=== PATIENT | male | born 1955 | race Caucasian/White ===

== ENCOUNTER 2017-04-18 08:39 | Day surgery (SDC) | payer MEDICARE ==
[~2017-04-18] VITALS: Ht 165.1 cm; Wt 81.6 kg
[2017-04-18] MEDS ORDERED: PROPOFOL 40 ML ONE (09:01)
[2017-04-18] MEDS ORDERED: LIDOCAINE 2% (SDV) 5 ML INJ ONE (09:01)
[2017-04-18 09:30] VITALS: Ht 165.1 cm; Wt 81.6 kg
[2017-04-18] MEDS ORDERED: metoprolol PO (09:49)
[2017-04-18] MEDS ORDERED: naproxen PO (09:49)
[2017-04-18] MEDS ORDERED: amlodipine PO (09:49)
[2017-04-18] MEDS ORDERED: allopurinol PO (09:49)
[2017-04-18 09:50] VITALS: BP 131/66; PULSE 66; RESP 15
--- NOTE | 2017-04-18 10:55 | OPPN ---
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
[2017-04-18 11:24] VITALS: BP 139/80; PULSE 62; RESP 16
--- NOTE | 2017-04-19 06:37 | GILP ---
DATE OF PROCEDURE: NAME OF PROCEDURES: Colonoscopy and biopsy. SURGEON: Real Saldaña MD. PREOPERATIVE DIAGNOSIS: Screening colonoscopy. POSTOPERATIVE DIAGNOSES 1. Colonoscopy all the way to the cecum. 2. Small polyp on the ileocecal valve was removed using biopsy forceps. 3. Internal hemorrhoids. INDICATION FOR THE PROCEDURE: The patient is a 61-year-old male patient who needed screening colono scopy. The procedure and possible complications were well explained to the patient. The patient understood and consented to the procedure. DESCRIPTION OF PROCEDURE: Under the influence of anesthesia, the colonoscope was carefully introduc ed in the rectum and under direct vision, it was advanced all the way to the cecum. FINDINGS: The patient had a small polyp in the ileocecal valve and it was removed using the biopsy forceps. He had internal hemorrhoids. He tolerated the procedure very well and there was no complication from the procedure. At the end o f the procedure, he was awake with stable vital signs and he was discharged home to the care of his family. IMPRESSION: Please see postoperative diagnosis. PLAN: Next screening colonoscopy in 10 years. Dictated By: REAL PEACOCK/KIRTI Conf#: [id number] DID#: [id number]
== END 2017-04-18 12:06 | disposition home or self-care (01) ==
LOC: GIL 08:39
PROVIDERS: ATTEND Internal Medicine Gastroenterology
DX: Z12.11 Encounter for screening for malignant neoplasm of colon (principal); D12.0 Benign neoplasm of cecum; K64.8 Other hemorrhoids; I10 Essential (primary) hypertension
CPT/HCPCS: 88305